=== PATIENT | female | born 1940 | race Caucasian/White ===

== ENCOUNTER 2016-07-28 07:24 | Emergency (ER) | payer MEDICARE, OTHER ==
[~2016-07-28] VITALS: Ht 165.1 cm; Wt 69.0 kg
[~2016-07-28 07:24] MED LIST: ASPI325T PO; COZA100T PO; ESTR.3 PO; FLON0.053; LEVO.1 PO; RANI150 PO; TAB-TAB PO; WAL-10TA2 PO; ZOCO40TA PO
[2016-07-28 07:30] VITALS: BP 157/95; PULSE 73; RESP 16; TEMP 100.4; O2SAT 95
[2016-07-28] MEDS ORDERED: GABA300C5 PO (07:43)
[2016-07-28] MEDS ORDERED: LOSA100T PO (07:43)
[2016-07-28] MEDS ORDERED: ASCO500C PO (07:43)
[2016-07-28] MEDS ORDERED: HYDR-3533 PO (07:43)
[2016-07-28] MEDS ORDERED: SIMV40TA PO (07:43)
[2016-07-28] MEDS ORDERED: LORA10TA PO (07:43)
[2016-07-28] MEDS ORDERED: ESTR.3 PO (07:43)
[2016-07-28] MEDS ORDERED: HYDR12.56 PO (07:43)
[2016-07-28] MEDS ORDERED: ASPI1TAB69 PO (07:43)
[2016-07-28] MEDS ORDERED: LEVO.05 PO (07:43)
[2016-07-28] MEDS ORDERED: ULTR50TA5 PO (07:43)
[2016-07-28] MEDS ORDERED: CLINDAMYCIN INJ 600 MG in SODIUM CHLORIDE 0.9% INJ 100 ML IV ONE ×2 (08:00→09:00)
[2016-07-28] MEDS ORDERED: ACETAMINOPHEN 325 MG TAB PO ONE (08:00)
[2016-07-28] MEDS ORDERED: KETOROLAC TROMETHAMINE 30 MG/ML (IVP) VIAL IV PUSH ONE (08:00)
--- NOTE | 2016-07-28 08:04 | PD ---
HPI Chief Complaint: Oral / Dental Pain or Problem Time Seen by Provider: 07:46 Travel History International Travel<30 days: No Contact w/Intl Traveler<30days: No Traveled to known affect area: No History of Present Illness HPI 76yo F with no PMH presents to the ED with c/o swelling and pain on left jaw and chin starting last night. Pt last went to dentist 1 month ago for crown placement. Denies any fever, trauma, chest pain, sob, n/v, abdominal pain, focal weakness or numbness. PFSH Past Medical History Arthritis: Yes High Cholesterol: Yes Cerebrovascular Accident: Yes (TIA) Diminished Hearing: No GERD: Yes Hypertension: Yes Thyroid Disease: Yes (Hypo-) Influenza Vaccination: Yes ?: Not Menopausal: Yes Past Surgical History Appendectomy: Yes Hysterectomy: Yes Tonsillectomy: Yes Other Surgery: Yes (Parathyroid) Social History Alcohol Use: Yes (Once a week) Tobacco Use: No Substance Use: No Allergies-Medications (Allergen,Severity, Reaction): Coded Allergies: No Known Allergies (Verified , 07/28/16) Reported Meds & Prescriptions Reported Meds & Active Scripts Active Reported Ultram (Tramadol HCl) 50 Mg Tab 50 Mg PO BID Gabapentin 300 Mg Cap 300 Mg PO HS Lortab (Hydrocodone-Acetaminophen) 5-325 Mg Tab 1 Tab PO Q4H PRN Vitamin C (Ascorbic Acid) 500 Mg Cap 500 Mg PO DAILY Aspirin 81 Mg Tabdr 81 Mg PO DAILY Losartan (Losartan Potassium) 100 Mg Tab 100 Mg PO DAILY Hydrochlorothiazide 12.5 Mg Tab 12.5 Mg PO DAILY Synthroid (Levothyroxine Sodium) 50 Mcg Tab 50 Mcg PO DAILY Loratadine 10 Mg Tab 10 Mg PO DAILY Premarin (Estrogens Conjugated) 0.3 Mg Tab 0.3 Mg PO DAILY Simvastatin 40 Mg Tab 40 Mg PO HS Review of Systems Except as stated in HPI: all other systems reviewed are Neg Physical Exam Narrative GENERAL: 76yo F not in distress. SKIN: Warm and dry. HEAD: Atraumatic. Normocephalic. EYES: Pupils equal and round. No scleral icterus. No injection or drainage. ENT: +Edema and erythema left angle of mandible to left submental area. Uvula midline and not swollen. NECK: Trachea midline. No JVD. +Cervical anterior lymphadenopathy not tender to palpation. CARDIOVASCULAR: Regular rate and rhythm. No murmur appreciated. RESPIRATORY: No accessory muscle use. Clear to auscultation. Breath sounds equal bilaterally. GASTROINTESTINAL: Abdomen soft, non-tender, nondistended. No rebound tenderness or guarding. MUSCULOSKELETAL: No obvious deformities. No clubbing. No cyanosis. No edema. NEUROLOGICAL: Awake and alert. No obvious cranial nerve deficits. Motor grossly within normal limits. Normal speech. PSYCHIATRIC: Appropriate mood and affect; insight and judgment normal. Data Data Last Documented VS Vital Signs Date Time Temp Pulse Resp B/P Pulse Ox O2 Delivery O2 Flow Rate FiO2 07/28/16 09:59 98.5 63 16 127/51 97 Room Air Orders Complete Blood Count With Diff (07/28/16 07:58) Basic Metabolic Panel (Bmp) (07/28/16 07:58) Ct Soft Tiss Neck W Iv Cont (07/28/16 ) Ketorolac Inj (Toradol Inj) (07/28/16 08:00) Clindamycin Inj (Cleocin Inj) (07/28/16 08:00) Acetaminophen (Tylenol) (07/28/16 08:00) Lactic Acid (07/28/16 07:58) Clindamycin Inj (Cleocin Inj) (07/28/16 09:00) Iohexol 350 Inj (Omnipaque 350 Inj) (07/28/16 09:59) Labs Laboratory Tests Test 07/28/16 08:20 White Blood Count 13.9 TH/MM3 Red Blood Count 4.79 MIL/MM3 Hemoglobin 14.2 GM/DL Hematocrit 42.8 % Mean Corpuscular Volume 89.3 FL Mean Corpuscular Hemoglobin 29.7 PG Mean Corpuscular Hemoglobin 33.3 % Concent Red Cell Distribution Width 13.1 % Platelet Count 262 TH/MM3 Mean Platelet Volume 8.5 FL Neutrophils (%) (Auto) 80.9 % Lymphocytes (%) (Auto) 6.9 % Monocytes (%) (Auto) 8.4 % Eosinophils (%) (Auto) 0.3 % Basophils (%) (Auto) 3.5 % Neutrophils # (Auto) 11.2 TH/MM3 Lymphocytes # (Auto) 1.0 TH/MM3 Monocytes # (Auto) 1.2 TH/MM3 Eosinophils # (Auto) 0.0 TH/MM3 Basophils # (Auto) 0.5 TH/MM3 CBC Comment DIFF FINAL Differential Comment Sodium Level 140 MEQ/L Potassium Level 4.0 MEQ/L Chloride Level 101 MEQ/L Carbon Dioxide Level 30.2 MEQ/L Anion Gap 9 MEQ/L Blood Urea Nitrogen 10 MG/DL Creatinine 0.81 MG/DL Estimat Glomerular Filtration 69 ML/MIN Rate Random Glucose 119 MG/DL Lactic Acid Level 1.9 mmol/L Calcium Level 8.6 MG/DL MDM Medical Decision Making Medical Screen Exam Complete: Yes Emergency Medical Condition: Yes Interpretation(s) Laboratory Tests Test 07/28/16 08:20 White Blood Count 13.9 TH/MM3 (4.0-11.0) Red Blood Count 4.79 MIL/MM3 (4.00-5.30) Hemoglobin 14.2 GM/DL (11.6-15.3) Hematocrit 42.8 % (35.0-46.0) Mean Corpuscular Volume 89.3 FL (80.0-100.0) Mean Corpuscular Hemoglobin 29.7 PG (27.0-34.0) Mean Corpuscular Hemoglobin 33.3 % Concent (32.0-36.0) Red Cell Distribution Width 13.1 % (11.6-17.2) Platelet Count 262 TH/MM3 (150-450) Mean Platelet Volume 8.5 FL (7.0-11.0) Neutrophils (%) (Auto) 80.9 % (16.0-70.0) Lymphocytes (%) (Auto) 6.9 % (9.0-44.0) Monocytes (%) (Auto) 8.4 % (0.0-8.0) Eosinophils (%) (Auto) 0.3 % (0.0-4.0) Basophils (%) (Auto) 3.5 % (0.0-2.0) Neutrophils # (Auto) 11.2 TH/MM3 (1.8-7.7) Lymphocytes # (Auto) 1.0 TH/MM3 (1.0-4.8) Monocytes # (Auto) 1.2 TH/MM3 (0-0.9) Eosinophils # (Auto) 0.0 TH/MM3 (0-0.4) Basophils # (Auto) 0.5 TH/MM3 (0-0.2) CBC Comment DIFF FINAL Differential Comment Sodium Level 140 MEQ/L (136-145) Potassium Level 4.0 MEQ/L (3.5-5.1) Chloride Level 101 MEQ/L (98-107) Carbon Dioxide Level 30.2 MEQ/L (21.0-32.0) Anion Gap 9 MEQ/L (5-15) Blood Urea Nitrogen 10 MG/DL (7-18) Creatinine 0.81 MG/DL (0.50-1.00) Estimat Glomerular Filtration 69 ML/MIN (>89) Rate Random Glucose 119 MG/DL (74-106) Lactic Acid Level 1.9 mmol/L (0.4-2.0) Calcium Level 8.6 MG/DL (8.5-10.1) Last Impressions Neck CT 07/28/16 0000 Signed Impressions: Service Date/Time: Thursday, July 28, 2016 09:43 - CONCLUSION: Nonspecific soft tissue swelling and edema adjacent to the left mandible. Otherwise, unremarkable exam. Dandy Peguero MD Differential Diagnosis Cellulitis vs. deeper infection vs. abscess Narrative Course 76yo F with left jaw and chin erythema edema. Appears superficial and pt is nontoxic appearing. Labs reviewed, mild leukocytosis at 13.9. Lactic acid normal at 1.9. Pt given acetaminophen, toradol and clindamycin IV. Pt reevaluated at bedside and pain has resolved. CT soft tissue neck showed nonspecific soft tissue swelling and edema adjacent to left mandible. Otherwise , unremarkable. Impression is cellulitis. Pt is tolerating PO and can try outpatient treatment with PO antibiotics first. Repeat temperature is afebrile. Return precautions given. Diagnosis Primary Impression: Cellulitis Qualified Code: L03.211 - Cellulitis of face Patient Instructions: General Instructions Departure Forms: Tests/Procedures Additional Instructions: Please follow up with PMD in 3-7 days. Return to the ED if symptoms worsen. Med/Other Pt SpecificInfo: Prescription(s) given Scripts Acetaminophen (Acetaminophen Extra Strength)500 Mg [id number] Mg PO Q6H PRN (PAIN SCALE 1 TO 4) #20 TAB Ref 0 Prov:Gilmore,Salma 07/28/16 Clindamycin 300 Mg [id number] Mg PO TID 7 Days Ref 0 Prov:MandoSalma 07/28/16 Disposition: 01 DISCHARGE HOME Condition: Stable GilmoreSalma Jul 28, 2016 08:04
[2016-07-28 08:39] LABS: AUTOMATED NEUTROPHIL # 11.2 TH/MM3 (1.8-7.7); BASOPHIL # 0.5 TH/MM3 (0-0.2); BASOPHIL % 3.5 % (0.0-2.0); EOSINOPHIL % 0.3 % (0.0-4.0); HEMATOCRIT 42.8 % (35.0-46.0); LYMPH % 6.9 % (9.0-44.0); MEAN CELL VOLUME 89.3 FL (80.0-100.0); MEAN CORPUSCULAR HEMOGLOBIN 29.7 PG (27.0-34.0); MEAN CORPUSCULAR HGB CONC 33.3 % (32.0-36.0); MONO % 8.4 % (0.0-8.0); NEUT % 80.9 % (16.0-70.0); PLATELET COUNT 262 TH/MM3 (150-450); RED BLOOD COUNT 4.79 MIL/MM3 (4.00-5.30); RED CELL DISTRIBUTION WIDTH 13.1 % (11.6-17.2); WHITE BLOOD COUNT 13.9 TH/MM3 (4.0-11.0)
[2016-07-28 08:43] LABS: HEMO FLAGS DIFF FINAL
[2016-07-28 08:52] LABS: BICARBONATE 30.2 MEQ/L (21.0-32.0)
[2016-07-28 09:06] VITALS: BP 164/68; PULSE 62; RESP 16; O2SAT 95
[2016-07-28 09:59] VITALS: BP 127/51; PULSE 63; RESP 16; TEMP 98.5; O2SAT 97
[2016-07-28] MEDS ORDERED: IOHEXOL 350 MG/ML 10 ML VIAL (for RAD DIAG) IV ONE (09:59)
--- NOTE | 2016-07-28 10:30 | RADHPO ---
EXAM DATE/TIME: 07/28/2016 09:43 [facility] COMPARISON: No previous studies available for comparison. INDICATIONS : Left sided submandibular edema and pain since last night. IV CONTRAST: 65 cc Omnipaque 350 (iohexol) IV RADIATION DOSE: 9.73 CTDIvol (mGy) MEDICAL HISTORY : Hypertension. Hypothyroidism. SURGICAL HISTORY : Tonsillectomy. Hysterectomy.parathyroidectomy ENCOUNTER: Initial ACUITY: 1 day PAIN SCALE: 4/10 LOCATION: Left jaw TECHNIQUE: Volumetric scanning of the neck was performed. Using automated exposure control and adjustment of th e mA and/or kV according to patient size, radiation dose was kept as low as reasonably achievable to obtain optimal diagnostic quality images. FINDINGS: NASOPHARYNX: The nasopharyngeal airway has a normal configuration. No mucosal thickening or mass is seen. OROPHARYNX: The intrinsic muscles of the tongue are symmetric. The tonsillar pillars are intact. The prevertebr al soft tissues are not thickened. LARYNX: The supraglottic, glottic, and infraglottic structures are intact. PARAPHARYNGEAL: The parapharyngeal space is intact. SALIVARY GLANDS: The parotid and submandibular glands are intact. LYMPH NODES: No enlarged or necrotic-appearing nodes. THYROID: Homogeneous enhancement without evidence of nodule. BONES: Grossly intact. There is nonspecific edema and soft tissue swelling adjacent to the left mandible. Th e left mandible remains intact without cortical erosions or periosteal reaction. No focal loculated f luid collections are seen. CONCLUSION: Nonspecific soft tissue swelling and edema adjacent to the left mandible. Otherwise, unremarkable amber Peguero MD on July 28, 2016 at 10:27 Board Certified Radiologist. This report was verified electronically.
[2016-07-28] MEDS ORDERED: ACET500T36 PO (11:11)
[2016-07-28] MEDS ORDERED: CLIN1CAP6 PO (11:11)
[2016-07-28 11:19] VITALS: BP 128/56
== END 2016-07-28 11:26 | disposition home or self-care (01) ==
LOC: PHED 07:24
DX: L03.211 Cellulitis of face (principal); E78.00 Pure hypercholesterolemia, unspecified; I10 Essential (primary) hypertension; E07.9 Disorder of thyroid, unspecified; K21.9 Gastro-esophageal reflux disease without esophagitis; Z86.73 Personal history of transient ischemic attack (TIA), and cerebral infarction without residual deficits
CPT/HCPCS: 70491; 80048; 83605; 85025; 96365; 96375; 99284; J1885; Q9967